=== PATIENT | female | born 2000 | race African-American/Black ===

== ENCOUNTER 2021-04-29 15:26 | Emergency (ER) | payer OTHER | END 2021-04-30 15:26 | disposition left against medical advice (07) | LOC: CSHERS 15:26 | DX: Z53.21 Procedure and treatment not carried out due to patient leaving prior to being seen by health care provider (principal) ==

== ENCOUNTER 2021-12-02 21:45 | Emergency (ER) | payer OTHER | END 2021-12-02 22:36 | disposition home or self-care (01) | LOC: CSHERS 21:45 | DX: O99.891 Other specified diseases and conditions complicating pregnancy (principal); Z3A.14 14 weeks gestation of pregnancy | CPT/HCPCS: 99283 ==

== ENCOUNTER 2021-12-20 10:48 | Emergency (ER) | payer OTHER ==
[2021-12-20] MEDS ORDERED: Acetaminophen 500 MG TAB ONE ×2 (12:11→14:06)
[2021-12-20] MEDS ORDERED: Ondansetron ODT 4 MG TAB ONE (13:07)
[2021-12-20 13:24] LABS: SARS-CoV-2 NAA Rapid Test DETECTED (NotDetected)
[2021-12-20 14:21] LABS: #Eosinphils 0.1 10x3/uL (0.0-0.5); #Monocytes 0.7 10x3/uL (0.0-1.1); #Neutrophils 4.6 10x3/uL (1.5-8.4); %Basophils 0.4 % (0.0-2.0); %Eosinophils 1.8 % (0.0-6.0); %Lymphocytes 4.4 % (18.0-47.0); %Monocytes 11.7 % (0.0-10.0); %Neutrophils 81.2 % (40.0-75.0); Hemoglobin 10.9 g/dL (12.0-15.5); Mean Corpuscular HGB CONC 33.6 g/dL (32.0-36.0); Mean Corpuscular Hemoglobin 28.8 pg (27.0-33.0); Mean Corpuscular Volume 85.7 fl (81.6-98.3); Mean Platelet Volume 9.9 fl (7.4-10.4); Platelet Count 185 10x3/uL (150-450); RBC Distribution Width 12.9 % (11.5-14.5); Red Blood Cell (RBC) Count 3.78 10x6/uL (3.90-5.03); White Blood Cell (WBC) Count 5.6 10x3/uL (3.5-10.5)
[2021-12-20 14:33] LABS: ALT (SGPT) 10 U/L (8-55); AST (SGOT) 17 U/L (5-34); Albumin 3.1 g/dL (3.5-5.0); Alkaline Phosphatase 33 U/L (40-110); Anion Gap 11 mmol/L (10-20); BUN (Urea Nitrogen) 6 mg/dL (7.0-18.7); Bilirubin, Total 0.3 mg/dL (0.2-1.2); Calc. Creatinine Clearance 0 mL/min (70-130); Calcium 7.9 mg/dL (7.8-10.44); Carbon Dioxide 19 mmol/L (22-29); Chloride 109 mmol/L (98-107); Globulin 2.3 g/dL (2.4-3.5); Glucose 111 mg/dL (70-105); Potassium 3.3 mmol/L (3.5-5.1); Protein, Total 5.4 g/dL (6.0-8.3); Sodium 136 mmol/L (136-145)
[2021-12-20] MEDS ORDERED: Potassium Chloride 20 MEQ TAB ONE (15:24)
== END 2021-12-20 16:00 | disposition home or self-care (01) ==
LOC: CSHERS 10:48
DX: O98.512 Other viral diseases complicating pregnancy, second trimester (principal); U07.1 COVID-19; O21.9 Vomiting of pregnancy, unspecified; Z3A.16 16 weeks gestation of pregnancy
CPT/HCPCS: 36415; 80053; 85025; 96360; 96361; Q0162

== ENCOUNTER 2022-01-21 09:07 | Outpatient (CLI) | payer OTHER | END 2022-01-21 09:08 | disposition home or self-care (01) | LOC: CSHULT 09:07 | PROVIDERS: ATTEND Family Medicine | DX: Z34.82 Encounter for supervision of other normal pregnancy, second trimester (principal); Z3A.20 20 weeks gestation of pregnancy | CPT/HCPCS: 76805 ==

== ENCOUNTER 2022-03-13 07:53 | Day surgery (SDC) | payer OTHER ==
[2022-03-13 08:30] VITALS: BMI 25.0
[2022-03-13] MEDS ORDERED: hydrALAZINE 20 MG/ML VIAL SLOW IVP PRN (08:47)
[2022-03-13 09:35] LABS: Fetal Membranes Rupture No Membranes Rupture (No Rupture)
[2022-03-13 09:42] LABS: Bilirubin Negative (Negative); Blood, Urine Negative (Negative); Clarity Cloudy (Clear); Glucose, Urine (Dipstick) Negative (Negative); Ketone, Urine Negative (Negative); Leukocyte Small (Negative); Nitrite Negative (Negative); Protein, Urine (Dipstick) Negative (Neg-Trace); Specific Gravity, Urine 1.015 (1.005-1.030); pH, Urine 6.5 (5.0-9.0)
[2022-03-13 09:58] LABS: Bacteria/HPF 4+ HPF (None Seen); RBC/HPF 0-3 HPF (0-3); Squamous Epithelial 0-3 HPF (0-3)
[2022-03-13 10:00] LABS: Urine Culture Reflex Yes Yes
[2022-03-13] MEDS ORDERED: Lidocaine 1% MPF 2 ML VIAL FS SCH (10:45)
[2022-03-13] MEDS ORDERED: cefTRIAXone\\ROCEPHIN 1 GM VIAL IM SCH (10:45)
== END 2022-03-13 11:02 | disposition home or self-care (01) ==
LOC: CSHLD/OP 07:53 → CSHERS 07:53 → EDSTATUS 07:57 → CSHLD/OP 11:02
PROVIDERS: ATTEND Family Medicine
DX: O26.893 Other specified pregnancy related conditions, third trimester (principal); R10.9 Unspecified abdominal pain; N89.8 Other specified noninflammatory disorders of vagina; Z79.899 Other long term (current) drug therapy
CPT/HCPCS: 81001; 84112; 87077; 87086; 87186; 87480; 87510; 87660; 96372; 99283; J0696

== ENCOUNTER 2022-04-11 02:09 | Day surgery (SDC) | payer OTHER ==
[2022-04-11 02:39] VITALS: BMI 24.9
[2022-04-11] MEDS ORDERED: hydrALAZINE 20 MG/ML VIAL SLOW IVP PRN (03:10)
[2022-04-11 04:08] LABS: Bilirubin Neg (Negative); Blood, Urine 25 (Negative); Glucose, Urine (Dipstick) Normal (Negative); Ketone, Urine Negative (Negative); Leukocyte 500 (Negative); Nitrite Negative (Negative); Protein, Urine (Dipstick) 15 mg/dl (Neg-Trace); Urobilinogen Normal mg/dL (Less than 2); pH, Urine 6.5 (5.0-9.0)
[2022-04-11 04:18] LABS: Bacteria/HPF 2+ HPF (None Seen); Mucous/LPF 4+ LPF (<2+); WBC/HPF 21-50 HPF (0-3)
[2022-04-11 04:24] LABS: Yeast-Hyphae Rare HPF (None Seen)
[2022-04-11] MEDS ORDERED: Fluconazole 100 MG TAB PO SCH (05:30)
[2022-04-11] MEDS ORDERED: metroNIDAZOLE 500 MG TAB PO SCH (09:00)
== END 2022-04-11 05:45 | disposition home or self-care (01) ==
LOC: CSHLD/OP 02:09
PROVIDERS: ATTEND Family Medicine
DX: O98.813 Other maternal infectious and parasitic diseases complicating pregnancy, third trimester (principal); B37.31 Acute candidiasis of vulva and vagina; O46.93 Antepartum hemorrhage, unspecified, third trimester; Z3A.32 32 weeks gestation of pregnancy; Z79.899 Other long term (current) drug therapy
CPT/HCPCS: 76815; 81003; 81015; 87480; 87510; 87660; 99284

== ENCOUNTER 2022-04-16 10:33 | Day surgery (SDC) | payer OTHER ==
[2022-04-16 11:12] VITALS: BMI 25.9
[2022-04-16] MEDS ORDERED: hydrALAZINE 20 MG/ML VIAL SLOW IVP PRN (11:52)
== END 2022-04-16 15:20 | disposition home or self-care (01) ==
LOC: CSHLD/OP 10:33
PROVIDERS: ATTEND Family Medicine
DX: O26.893 Other specified pregnancy related conditions, third trimester (principal); R10.32 Left lower quadrant pain; Z3A.33 33 weeks gestation of pregnancy
CPT/HCPCS: 99282

== ENCOUNTER 2022-04-23 08:36 | Day surgery (SDC) | payer OTHER ==
[2022-04-23 09:18] VITALS: BMI 25.9
[2022-04-23] MEDS ORDERED: hydrALAZINE 20 MG/ML VIAL SLOW IVP PRN (10:46)
[2022-04-23] MEDS ORDERED: Morphine 10 MG/ML VIAL IM SCH (11:00)
[2022-04-23] MEDS ORDERED: Promethazine HCl 25 MG/ML VIAL IM SCH (11:00)
[2022-04-23] MEDS ORDERED: Lactated Ringer's 1,000 ML IV SCH (11:00)
[2022-04-23 11:47] LABS: Bilirubin Neg (Negative); Blood, Urine Negative (Negative); Clarity Sl. Cloudy (Clear); Glucose, Urine (Dipstick) Normal (Negative); Ketone, Urine Negative (Negative); Leukocyte 25 (Negative); Nitrite Negative (Negative); Protein, Urine (Dipstick) 15 mg/dl (Neg-Trace); Specific Gravity, Urine 1.015 (1.005-1.030); pH, Urine 6.5 (5.0-9.0)
[2022-04-23 11:56] LABS: Bacteria/HPF Rare-Few HPF (None Seen); Mucous/LPF 1+ LPF (<2+); RBC/HPF 0-3 HPF (0-3); Squamous Epithelial 0-3 HPF (0-3); WBC/HPF 0-3 HPF (0-3)
== END 2022-04-23 14:40 | disposition home or self-care (01) ==
LOC: CSHLD/OP 08:36
PROVIDERS: ATTEND Family Medicine
DX: O60.03 Preterm labor without delivery, third trimester (principal); Z3A.34 34 weeks gestation of pregnancy; Z79.899 Other long term (current) drug therapy
CPT/HCPCS: 81001; 87480; 87510; 87660; 96360; 96361; 96372; 99285; J2270; J2550

== ENCOUNTER 2022-05-07 23:14 | Inpatient (IN) | payer OTHER ==
[2022-05-07] MEDS ORDERED: Lidocaine 1% (PF) 30 ML VIAL SC PRN (23:50)
[2022-05-07] MEDS ORDERED: Methylergonovine 0.2 MG/ML VIAL IM PRN (23:50)
[2022-05-07] MEDS ORDERED: Ibuprofen 800 MG TAB PO PRN (23:50)
[2022-05-07] MEDS ORDERED: Diphenoxylate HCl/Atropine Tablet PO PRN (23:50)
[2022-05-07] MEDS ORDERED: HYDROcodone/Acetaminophen 5/325 mg Tablet PO PRN (23:50)
[2022-05-07] MEDS ORDERED: Misoprostol 200 MCG TAB PR PRN (23:50)
[2022-05-07] MEDS ORDERED: Carboprost 250 MCG/ML AMP IM PRN (23:50)
[2022-05-07] MEDS ORDERED: Ondansetron PF 4 MG/2 ML Vial IVP PRN (23:50)
[2022-05-07] MEDS ORDERED: Promethazine HCl 25 MG/ML VIAL IM PRN (23:50)
[2022-05-07] MEDS ORDERED: Acetaminophen 500 MG TAB PO PRN (23:50)
[2022-05-07] MEDS ORDERED: hydrALAZINE 20 MG/ML VIAL SLOW IVP PRN (23:50)
[2022-05-07] MEDS ORDERED: Butorphanol Tartrate 1 MG/ML VIAL SLOW IVP PRN (23:50)
[2022-05-07] MEDS ORDERED: Lactated Ringer's 1,000 ML IV SCH (23:59)
[2022-05-07] MEDS ORDERED: Penicillin G Potassium 5 MILL.UNITS in Sodium Chloride 0.9% 100 ML IVPB SCH (23:59)
[2022-05-07] MEDS ORDERED: NS w/ Oxytocin 30 units 500 ML IV SCH (23:59)
[2022-05-08] MEDS ORDERED: Lactated Ringer's 1,000 ML IV SCH (00:15)
[2022-05-08 00:58] LABS: Hemoglobin 11.9 g/dL (12.0-15.5); Mean Corpuscular HGB CONC 32.8 g/dL (32.0-36.0); Mean Corpuscular Hemoglobin 28.5 pg (27.0-33.0); Mean Corpuscular Volume 86.8 fl (81.6-98.3); Mean Platelet Volume 10.9 fl (7.4-10.4); Platelet Count 240 10x3/uL (150-450); RBC Distribution Width 12.1 % (11.5-14.5); Red Blood Cell (RBC) Count 4.18 10x6/uL (3.90-5.03); White Blood Cell (WBC) Count 8.1 10x3/uL (3.5-10.5)
[2022-05-08 01:36] LABS: HBSAg Index 0.15 S/CO (0-0.99); Hep B Surf Ag Non-Reactive S/CO (NonReactive)
[2022-05-08 01:37] LABS: Syphilis Antibody Nonreactive (Nonreactive); Syphilis Antibody Index 0.03 S/CO (<1.00 Non-Reactive)
[2022-05-08 03:23] VITALS: BMI 26.6
[2022-05-08] MEDS ORDERED: Penicillin G 2.5 MILL.units 2.5 MILL.UNITS in Premix Bag 1 BAG IVPB SCH (04:00)
[2022-05-08 08:39] LABS: SARS-CoV-2 NAA Rapid Test Not Detected (NotDetected)
== END 2022-05-08 08:30 | disposition home or self-care (01) | DRG 833 ==
LOC: CSHLD/OP 23:14 → CSHLD 23:54
PROVIDERS: ADMIT Family Medicine; ATTEND Family Medicine
DX: O47.03 False labor before 37 completed weeks of gestation, third trimester (principal); Z20.822 Contact with and (suspected) exposure to COVID-19; Z3A.36 36 weeks gestation of pregnancy
CPT/HCPCS: 85027; 86780; 86850; 86900; 86901; 87340; 99285; U0002

== ENCOUNTER 2022-05-13 14:25 | Day surgery (SDC) | payer OTHER ==
[2022-05-13 15:00] VITALS: BMI 26.6
[2022-05-13] MEDS ORDERED: hydrALAZINE 20 MG/ML VIAL SLOW IVP PRN (15:07)
== END 2022-05-13 16:45 | disposition home or self-care (01) ==
LOC: CSHLD/OP 14:25
PROVIDERS: ATTEND Family Medicine
DX: O47.1 False labor at or after 37 completed weeks of gestation (principal); Z3A.37 37 weeks gestation of pregnancy
CPT/HCPCS: 99283

== ENCOUNTER 2022-05-16 09:53 | Inpatient (IN) | payer OTHER ==
[2022-05-16] MEDS ORDERED: Penicillin G Potassium 5 MILL.UNITS VIAL ONE (10:30)
[2022-05-16 10:42] VITALS: BMI 26.6
[2022-05-16] MEDS ORDERED: Ibuprofen 800 MG TAB PO PRN (10:44)
[2022-05-16] MEDS ORDERED: hydrALAZINE 20 MG/ML VIAL SLOW IVP PRN ×2 (10:44→19:29)
[2022-05-16] MEDS ORDERED: HYDROcodone/Acetaminophen 5/325 mg Tablet PO PRN ×2 (10:44→19:29)
[2022-05-16] MEDS ORDERED: Methylergonovine 0.2 MG/ML VIAL IM PRN (10:44)
[2022-05-16] MEDS ORDERED: Acetaminophen 500 MG TAB PO PRN (10:44)
[2022-05-16] MEDS ORDERED: Ondansetron PF 4 MG/2 ML Vial IVP PRN ×2 (10:44→19:29)
[2022-05-16] MEDS ORDERED: Diphenoxylate HCl/Atropine Tablet PO PRN (10:44)
[2022-05-16] MEDS ORDERED: Lidocaine 1% (PF) 30 ML VIAL SC PRN (10:44)
[2022-05-16] MEDS ORDERED: Butorphanol Tartrate 1 MG/ML VIAL SLOW IVP PRN (10:44)
[2022-05-16] MEDS ORDERED: Misoprostol 200 MCG TAB PR PRN (10:44)
[2022-05-16] MEDS ORDERED: Promethazine HCl 25 MG/ML VIAL IM PRN ×2 (10:44→19:29)
[2022-05-16] MEDS ORDERED: Carboprost 250 MCG/ML AMP IM PRN (10:44)
[2022-05-16] MEDS ORDERED: NS w/ Oxytocin 30 units 500 ML IV SCH ×3 (10:45→19:29)
[2022-05-16] MEDS ORDERED: Lactated Ringer's 1,000 ML IV SCH (10:45)
[2022-05-16] MEDS ORDERED: Penicillin G Potassium 5 MILL.UNITS in Sodium Chloride 0.9% 100 ML IVPB SCH (10:45)
[2022-05-16 11:29] LABS: SARS-CoV-2 NAA Rapid Test Not Detected (NotDetected)
[2022-05-16 12:35] LABS: Hemoglobin 11.9 g/dL (12.0-15.5); Mean Corpuscular HGB CONC 31.6 g/dL (32.0-36.0); Mean Corpuscular Hemoglobin 28.1 pg (27.0-33.0); Mean Corpuscular Volume 88.7 fl (81.6-98.3); Platelet Count 235 10x3/uL (150-450); RBC Distribution Width 12.3 % (11.5-14.5); Red Blood Cell (RBC) Count 4.24 10x6/uL (3.90-5.03); White Blood Cell (WBC) Count 6.1 10x3/uL (3.5-10.5)
[2022-05-16 13:35] LABS: Syphilis Antibody Nonreactive (Nonreactive); Syphilis Antibody Index 0.04 S/CO (<1.00 Non-Reactive)
[2022-05-16 13:37] LABS: Hep B Surf Ag Non-Reactive S/CO (NonReactive)
[2022-05-16] MEDS: Penicillin G 2.5 MILL.units 2.5 MILL.UNITS in Premix Bag 1 BAG IVPB SCH (15:29)
[2022-05-16] MEDS ORDERED: Boostrix 0.5 ML (Tdap) VIAL (>/=7 yrs of age) IM ONE (19:29)
[2022-05-16] MEDS ORDERED: Preparation H Ointment 28 GM TUBE PR PRN (19:29)
[2022-05-16] MEDS ORDERED: Bisacodyl 10 MG SUPP PR PRN (19:29)
[2022-05-16] MEDS ORDERED: Lanolin Ointment 7 GM TUBE TOP PRN (19:29)
[2022-05-16] MEDS ORDERED: Milk Of Magnesia 30 ML UDCUP PO PRN (19:29)
[2022-05-16] MEDS ORDERED: diphenhydrAMINE 25 MG CAP PO PRN (19:29)
[2022-05-16] MEDS: HYDROcodone/Acetaminophen 5/325 mg Tablet PO PRN (19:55)
[2022-05-16] MEDS: Docusate 100 MG CAP PO SCH (19:56)
[2022-05-17] MEDS: Penicillin G 2.5 MILL.units 2.5 MILL.UNITS in Premix Bag 1 BAG IVPB SCH (04:49)
[2022-05-17] MEDS: Ibuprofen 800 MG TAB PO SCH ×4 (05:01→21:08)
[2022-05-17] MEDS: Ferrous Sulfate 325 MG TAB PO SCH ×2 (08:47→15:00)
[2022-05-17] MEDS: Prenatal Vitamin 1 TAB PO SCH (08:47)
[2022-05-17] MEDS: Docusate 100 MG CAP PO SCH ×2 (08:47→21:08)
[2022-05-17] MEDS: HYDROcodone/Acetaminophen 5/325 mg Tablet PO PRN (08:49)
[2022-05-18] MEDS: Ibuprofen 800 MG TAB PO SCH (04:26)
[2022-05-18] MEDS: Ferrous Sulfate 325 MG TAB PO SCH (08:55)
[2022-05-18] MEDS: Prenatal Vitamin 1 TAB PO SCH (08:55)
[2022-05-18] MEDS: Docusate 100 MG CAP PO SCH (08:55)
[2022-05-18 13:38] VITALS: BP 124/58; TEMP 98.1
== END 2022-05-18 13:25 | disposition home or self-care (01) | DRG 807 ==
LOC: CSHLD/OP 09:53 → CSHLD 10:31 → CSHPP 19:25
PROVIDERS: ADMIT Family Medicine; ATTEND Family Medicine
PROC: 10E0XZZ Delivery of Products of Conception, External Approach (ICD-10-PCS; principal; 2022-05-16)
DX: O42.02 Full-term premature rupture of membranes, onset of labor within 24 hours of rupture (principal); Z37.0 Single live birth; Z20.822 Contact with and (suspected) exposure to COVID-19; Z3A.37 37 weeks gestation of pregnancy; O99.824 Streptococcus B carrier state complicating childbirth
CPT/HCPCS: 85027; 86780; 86850; 86900; 86901; 87340; 99285; J2540; J2590; J3490; U0002

== ENCOUNTER 2022-12-10 02:42 | Emergency (ER) | payer OTHER | END 2022-12-10 03:01 | disposition home or self-care (01) | LOC: CSHERS 02:42 | DX: N89.8 Other specified noninflammatory disorders of vagina (principal) | CPT/HCPCS: 99281 ==

== ENCOUNTER 2023-02-06 07:58 | Emergency (ER) | payer OTHER ==
[2023-02-06] MEDS ORDERED: Ibuprofen 200 MG TAB ONE (08:40)
== END 2023-02-06 08:42 | disposition home or self-care (01) ==
LOC: CSHERS 07:58
DX: O92.79 Other disorders of lactation (principal)
CPT/HCPCS: 93005; 93010; 99283

== ENCOUNTER 2023-03-05 19:12 | Emergency (ER) | payer OTHER, SELFPAY ==
[2023-03-05 20:46] LABS: SARS-CoV-2 NAA Rapid Test Not Detected (NotDetected)
[2023-03-05 22:07] LABS: Bilirubin Neg (Negative); Blood, Urine 25 (Negative); Clarity Slightly Cloudy (Clear); Glucose, Urine (Dipstick) Normal (Negative); Ketone, Urine Negative (Negative); Leukocyte 100 (Negative); Nitrite Negative (Negative); Protein, Urine (Dipstick) 15 mg/dl (Neg-Trace); Urobilinogen Normal mg/dL (Less than 2)
[2023-03-05 22:13] LABS: Pregnancy Test - Urine (BHCG) POSITIVE (Negative)
[2023-03-05 22:14] LABS: Pregu Control Background? CLEAR/WHITE (CLR/WHITE); Pregu Control Bar Appear? YES (CONTROL BAR)
[2023-03-05] MEDS ORDERED: Ondansetron ODT 4 MG TAB ONE (22:20)
[2023-03-05 22:22] LABS: Bacteria/HPF 4+ HPF (None Seen); CAUTI Indications for Culture Pelvic or flank pain; RBC/HPF 0-3 HPF (0-3); WBC/HPF 21-50 HPF (0-3)
[2023-03-05 22:24] LABS: Urine Culture Reflex Yes Yes
[2023-03-05] MEDS ORDERED: Cephalexin 250 MG CAP ONE (23:01)
== END 2023-03-05 23:15 | disposition home or self-care (01) ==
LOC: CSHERS 19:12
DX: N39.0 Urinary tract infection, site not specified (principal); Z20.822 Contact with and (suspected) exposure to COVID-19; Z32.01 Encounter for pregnancy test, result positive
CPT/HCPCS: 81001; 81025; 87077; 87086; 87186; 99284; Q0162

== ENCOUNTER 2023-03-19 07:47 | Emergency (ER) | payer SELFPAY ==
[2023-03-19 09:12] LABS: Bilirubin Neg (Negative); Blood, Urine 10 (Negative); Clarity Slightly Cloudy (Clear); Glucose, Urine (Dipstick) Normal (Negative); Ketone, Urine Negative (Negative); Leukocyte 500 (Negative); Nitrite Negative (Negative); Protein, Urine (Dipstick) 15 mg/dl (Neg-Trace); Specific Gravity, Urine 1.015 (1.005-1.030); Urobilinogen Normal mg/dL (Less than 2)
[2023-03-19 09:49] LABS: CAUTI Indications for Culture Dysuria,urgency,freq; RBC/HPF 0-3 HPF (0-3)
[2023-03-19 09:50] LABS: Bacteria/HPF 2+ HPF (None Seen); Urine Culture Reflex No No
== END 2023-03-19 09:28 | disposition home or self-care (01) ==
LOC: CSHERS 07:47
DX: N39.0 Urinary tract infection, site not specified (principal); Z32.01 Encounter for pregnancy test, result positive
CPT/HCPCS: 81001; 99283

== ENCOUNTER 2023-06-28 22:12 | Day surgery (SDC) | payer OTHER ==
[2023-06-28 22:40] VITALS: BMI 24.9
[2023-06-28] MEDS ORDERED: hydrALAZINE 20 MG/ML VIAL SLOW IVP PRN (22:52)
[2023-06-28 22:55] LABS: Fetal Membranes Rupture No Membranes Rupture (No Rupture)
== END 2023-06-29 00:30 | disposition home or self-care (01) ==
LOC: CSHLD/OP 22:12
PROVIDERS: ATTEND Family Medicine
DX: O99.891 Other specified diseases and conditions complicating pregnancy (principal); O36.8120 Decreased fetal movements, second trimester, not applicable or unspecified; N89.8 Other specified noninflammatory disorders of vagina; Z3A.22 22 weeks gestation of pregnancy; Z79.899 Other long term (current) drug therapy
CPT/HCPCS: 84112; 87480; 87510; 87660; 99285

== ENCOUNTER 2023-07-15 08:46 | Outpatient (CLI) | payer OTHER | END 2023-07-15 08:47 | disposition home or self-care (01) | LOC: CSHULT 08:46 | PROVIDERS: ATTEND Nurse Practitioner Women's Health | DX: Z34.82 Encounter for supervision of other normal pregnancy, second trimester (principal); Z3A.24 24 weeks gestation of pregnancy | CPT/HCPCS: 76805 ==

== ENCOUNTER 2023-08-13 16:37 | Emergency (ER) | payer OTHER ==
[2023-08-13 18:27] LABS: SARS-CoV-2 NAA Rapid Test Not Detected (NotDetected)
== END 2023-08-13 18:38 | disposition home or self-care (01) ==
LOC: CSHERS 16:37
DX: O26.813 Pregnancy related exhaustion and fatigue, third trimester (principal); Z55.6 Problems related to health literacy; Z3A.29 29 weeks gestation of pregnancy
CPT/HCPCS: 93005

== ENCOUNTER 2023-08-24 00:58 | Day surgery (SDC) | payer OTHER ==
[2023-08-24] MEDS ORDERED: hydrALAZINE 20 MG/ML VIAL SLOW IVP PRN (02:17)
[2023-08-24 03:15] LABS: Fetal Membranes Rupture No Membranes Rupture (No Rupture)
== END 2023-08-24 03:56 | disposition home or self-care (01) ==
LOC: CSHLD/OP 00:58
PROVIDERS: ATTEND Family Medicine
DX: O47.03 False labor before 37 completed weeks of gestation, third trimester (principal); Z03.71 Encounter for suspected problem with amniotic cavity and membrane ruled out; Z79.899 Other long term (current) drug therapy; Z3A.30 30 weeks gestation of pregnancy
CPT/HCPCS: 84112; 87480; 87510; 87660; 99284

== ENCOUNTER 2023-09-21 03:11 | Day surgery (SDC) | payer OTHER ==
[2023-09-21 03:42] VITALS: BMI 27.4
[2023-09-21 04:01] LABS: Fetal Membranes Rupture No Membranes Rupture (No Rupture)
== END 2023-09-21 04:48 | disposition home or self-care (01) ==
LOC: CSHLD/OP 03:11
PROVIDERS: ATTEND Family Medicine
DX: O23.593 Infection of other part of genital tract in pregnancy, third trimester (principal); N89.8 Other specified noninflammatory disorders of vagina; Z03.71 Encounter for suspected problem with amniotic cavity and membrane ruled out; Z79.899 Other long term (current) drug therapy; Z3A.35 35 weeks gestation of pregnancy
CPT/HCPCS: 84112

== ENCOUNTER 2023-12-09 18:34 | Emergency (ER) | payer OTHER ==
[2023-12-09] MEDS ORDERED: Ibuprofen 200 MG TAB ONE (19:26)
== END 2023-12-09 19:35 | disposition home or self-care (01) ==
LOC: CSHERS 18:34
DX: N62 Hypertrophy of breast (principal); N64.4 Mastodynia; R50.9 Fever, unspecified
CPT/HCPCS: 93005; 93010; 99284

== ENCOUNTER 2025-06-03 06:34 | Emergency (ER) | payer SELFPAY ==
[2025-06-03] MEDS ORDERED: diphenhydrAMINE 25 MG CAP ONE (07:20)
[2025-06-03 07:56] LABS: Glucose, Urine (Dipstick) Normal (Negative); Leukocyte Negative (Negative); Protein, Urine (Dipstick) 30 mg/dl (Neg-Trace); Specific Gravity, Urine 1.020 (1.005-1.030)
[2025-06-03 08:07] LABS: CAUTI Indications for Culture Pelvic or flank pain; RBC/HPF 0-3 HPF (0-3); WBC/HPF 0-3 HPF (0-3)
[2025-06-03 08:08] LABS: Bacteria/HPF 1+ HPF (None Seen); Mucous/LPF 1+ LPF (<2+); Urine Culture Reflex No No
== END 2025-06-03 07:46 | disposition home or self-care (01) ==
LOC: CSHERS 06:34
DX: L29.9 Pruritus, unspecified (principal); Z55.6 Problems related to health literacy
CPT/HCPCS: 81001; 99283